=== PATIENT | female | born 1935 | race Caucasian/White ===

== ENCOUNTER 2018-12-04 21:40 | Inpatient (IN) | payer MEDICARE, MEDICAID ==
[2018-12-04 23:14] VITALS: BP 167/76
[2018-12-05] MEDS ORDERED: Dicyclomine 10 mg Cap PO PRN (00:51)
[2018-12-05] MEDS ORDERED: Polyvinyl Alcohol Ophth Soln 15 mL Bottle EACH EYE PRN (00:51)
[2018-12-05] MEDS ORDERED: Maalox 30 mL Cup PO PRN (00:51)
[2018-12-05] MEDS ORDERED: Non-Formulary Item 1 EA (Diclofenac Sodium [Voltaren] 2 GM) TP PRN (00:51)
[2018-12-05] MEDS ORDERED: PHENOL MM PRN (00:51)
[2018-12-05] MEDS ORDERED: THROAT MM PRN (00:51)
[2018-12-05] MEDS ORDERED: Lactulose 10 Gm/15 mL 30mL UDC PO PRN (01:30)
[2018-12-05] MEDS: Pantoprazole 40 mg EC Tab PO SCH (06:49)
[2018-12-05] MEDS: Levothyroxine 0.05 Mg Tab PO SCH (06:49)
[2018-12-05] MEDS ORDERED: [UNRECOGNIZED DRUG - MIXTURE] PO SCH (09:00)
[2018-12-05] MEDS: Ferrous Sulfate 325 MG TAB PO SCH (09:13)
[2018-12-05] MEDS: Multivitamin Tab PO SCH (09:14)
[2018-12-05] MEDS: Magnesium Chloride EC 64mg Tab PO SCH ×2 (09:14→17:14)
[2018-12-05] MEDS: Atorvastatin Calcium 10 MG TAB PO SCH (21:36)
[2018-12-05] MEDS: NIFEdipine 30 mg ER Tab PO SCH (21:41)
--- NOTE | 2018-12-05 21:57 | Consultation ---
DATE OF CONSULTATION: 12/04/2018 INTERNAL MEDICINE CONSULTATION HISTORY OF PRESENT ILLNESS: The patient is an 82-year-old female resident of a group home, a patient of mine, being a PCP. PAST MEDICAL HISTORY: Significant for hypertension, diabetes mellitus, diabetic angiopathy, neuropathy, nephropathy, COPD, CHF, chronic kidney disease, peripheral neuropathy, peptic ulcer disease, gastritis, arthritis, osteoporosis, and advanced psychosis and dementia. SOCIAL HISTORY: No prior history of smoking. OBSTETRIC HISTORY: P2 +0. Menses are postmenopausal. REVIEW OF SYSTEMS: The patient initially was transferred to [facility] where the patient's blood pressure was very high, was treated in the Emergency Room. Psych received a call from the nurse at the [facility]. The patient is stable and is being transferred to Geropsych Unit. PHYSICAL EXAMINATION: GENERAL: Average female in no obvious respiratory distress. VITAL SIGNS: Include a blood pressure of 160/94, heart rate of 100, and respiration rate of 18. SKIN: Show no cellulitis. HEENT: Normal conjunctivae. NECK: Supple. LUNGS: Show occasional rhonchi, occasional crepitation. No bronchial breathing. HEART: First and second heart sounds normal. ABDOMEN: Soft. Bowel sounds good. EXTREMITIES: Show arthritis. NEUROLOGIC: The patient has advanced psychosis. LABORATORY DATA: Done at the [facility] ER has been reviewed. ADMITTING DIAGNOSES: Include poorly controlled hypertension, diabetes mellitus, diabetic angiopathy, neuropathy, nephropathy, COPD, chronic kidney disease, peripheral neuropathy, CHF, coronary artery disease, peptic ulcer disease, arthritis, and osteoporosis. CURRENT MEDICATIONS: The patient is on magnesium chloride, multivitamin, Procardia 90 mg daily, Protonix 40 mg daily. The patient is on Risperdal 0.5 mg twice a day, Carafate 1 gram 4 times a day, tramadol 50 mg 4 times a day, Ambien 5 mg daily, Tylenol p.r.n., atorvastatin 10 mg daily, Coreg 6.25 mg twice a day. The patient is on Cipro for UTI. The patient is on clonidine p.r.n., Lasix 40 mg daily, hydralazine 50 mg 3 times a day, Isordil 10 mg twice a day, levothyroxine 50 mcg daily. PROGNOSIS: Fair to guarded. TREATMENT PLAN: The patient is very noncompliant to the medicines. JOB# [id number]
--- NOTE | 2018-12-06 01:05 | Psychiatric Evaluation ---
DATE OF SERVICE: 12/05/2018 REASON FOR ADMISSION: The patient was admitted for episodes of agitation as well as stuffing tissue paper in her mouth and nose. Upon interview, the patient appeared to be somewhat poor of a historian. The patient was able to give her name, age, and birthday. When asked why she is here, the patient stated " It was a mistake". The patient stated that she is not crazy. She said it was her roommate that is supposed to be here. She said her roommate is crazy. When asked if she had been agitated, striking out at the staff as well as stuffing tissue in her nose and mouth, the patient stated that she had some condition that she is trying to treat. The patient also reported that she did not want to be changed by male staff, so she kicked male staff. The patient reported that since she had been here, she did not like the food, but she tried to eat. The patient reported that she sleeps okay. The patient reported that she feels okay. When I asked her to rate her mood on a 0-10 scale, 0 being normal, happy and 10 being very depressed, the patient stated 0. The patient denied any suicidal or homicidal ideation, plan or intention. Orientation: the patient was disoriented to time, place, and person. The patient was not able to say where she is. When asked what the date is today, the patient stated that there was no calendar or anything for her to look at. When asked what month this is, the patient said December. When asked what day in December, the patient stated it must well be 10 because that is her birthday. The patient reported that the year is 2015. Memory: appeared to be somewhat impaired for immediate memory. The patient had difficulty remembering and repeating all 4 items at the same time. The patient was given the 4 items 4 times. The patient was able to remember and repeat only 3/4 items. When I asked her to recall the 4 items, the patient was unable to recall any. When given hints, the patient was able to recall 3/4 items. Concentration: appeared to be adequate. The patient attempted serial 3 subtraction, gave an answer of 17 and 15. The patient denied any auditory or visual hallucination or delusion. The patient gave concrete interpretation to one of the proverbs and not able to give interpretation to the other proverb and said that she had not heard of the third proverb. PAST MEDICAL HISTORY: The patient has history of atherosclerotic heart disease, UTI, osteoporosis, hypertension, chronic kidney disease, bradycardia, hyperlipidemia, hypothyroidism, gastroesophageal reflux. PERSONAL HISTORY: The patient reported that she is a . She has one son that she has not seen in 7 years. The patient reported that she was born in [facility], but her parents took her to [facility] when she was 12 years old. The patient reported that she went to school for about 1 year in [place]. The patient reported that she moved to [place] when she was 22. The patient reported that she used to work in [employer]. SUBSTANCE ABUSE HISTORY: The patient reported that she used to drink in the past. The patient denied any tobacco use. PAST SURGICAL HISTORY: The patient reported that she had 1 section. The patient had surgery to her left shoulder. MEDICATIONS: Currently, the patient is on Tylenol, simethicone, atorvastatin, Dulcolax, carvedilol, ciprofloxacin, clonidine, dicyclomine, docusate sodium, Lexapro 20 mg daily, ferrous sulfate, Lasix, hydralazine, isosorbide, lactulose, levothyroxine, loratadine, Ativan 0.5 mg q. 4 hours p.r.n., magnesium chloride, multiple vitamins, nifedipine, Protonix, Risperdal 0.5 mg b.i.d., sennosides, senna, sodium bicarbonate, sodium chloride, sucralfate, tramadol and Ambien 5 mg at bedtime p.r.n. LABORATORY RESULTS: There is no lab available at this time. DIAGNOSES: AXIS I: 1. 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 2. Psychotic disorder and mood disorder, depressed due to medical condition. 3. Impulse control disorder, not otherwise specified. 4. Personality change due to medical condition. PLAN: We will continue the patient on current medications and monitor the patient's response to the medications. We will adjust the medications accordingly as to the patient's symptoms that the patient will exhibit. JOB# [id number] ANGELES
--- NOTE | 2018-12-06 01:29 | Progress Notes ---
DATE: 12/05/2018 INTERNAL MEDICINE CONSULTATION FOLLOWUP SUBJECTIVE: The patient is an 82-year-old female [facility]. CURRENT MEDICAL PROBLEMS: Include diabetes mellitus; diabetic angiopathy, neuropathy, nephropathy; peripheral neuropathy; hypertension; COPD; CHF; chronic kidney disease; hypothyroidism; peptic ulcer disease; gastritis; arthritis; advanced psychosis and dementia. The patient has a labile blood pressure right now, complaining of headache off and on, chronic pain syndrome. Very noncompliant. OBJECTIVE: VITAL SIGNS: Stable. LUNGS: Show bilateral rhonchi, crepitation. No bronchial breathing. HEART: First and second normal. ABDOMEN: Soft, bowel sounds present. EXTREMITIES: Show arthritis. NEUROLOGIC: The patient has advanced psychosis and dementia. PLAN: Psychiatric consult reviewed. Medicines reviewed. Continue current medical management. JOB# [id number]
[2018-12-06] MEDS: Pantoprazole 40 mg EC Tab PO SCH (06:45)
[2018-12-06] MEDS: Levothyroxine 0.05 Mg Tab PO SCH (06:45)
[2018-12-06] MEDS: Magnesium Chloride EC 64mg Tab PO SCH ×2 (08:13→16:39)
[2018-12-06] MEDS: Ferrous Sulfate 325 MG TAB PO SCH (08:13)
[2018-12-06] MEDS: Multivitamin Tab PO SCH (08:14)
--- NOTE | 2018-12-06 12:12 | Progress Notes ---
DATE: 12/06/2018 SUBJECTIVE: The patient was resting in bed with eyes closed. The patient responded to verbal stimuli. The patient reported that she is doing okay. She reported that she slept well last night. The patient denied any auditory or visual hallucination. No delusion. The patient denied giving staff a hard time. OBJECTIVE: The patient continued to be calm and cooperative when talked to. The staff reported that the patient slept about 6 hours. Staff reported that the patient was calm, cooperative and able to make needs known. The patient took her medications last evening without any difficulty. The staff reported that the patient did not exhibit any psychotic symptoms. No episodes of talking to self or responding to internal stimuli. The patient has not expressed any delusion. ASSESSMENT: AXIS I: 1. 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 2. Psychotic disorder and mood disorder, depressed due to medical condition. 3. Impulse control disorder, not otherwise specified. 4. Personality change due to medical condition. PLAN: We will increase the patient Risperdal to 0.5 mg p.o. q.a.m. and 1 mg p.o. at bedtime since the patient had exhibited increased psychotic symptoms that led to this hospitalization. We will monitor the patient's response to the medication and monitor whether the patient will continue to be compliant with medications, care and treatment. JOB# [id number] ANGELES
[2018-12-06] MEDS: NIFEdipine 30 mg ER Tab PO SCH (20:47)
[2018-12-06] MEDS: Atorvastatin Calcium 10 MG TAB PO SCH (20:49)
--- NOTE | 2018-12-06 22:23 | Progress Notes ---
DATE: 12/06/2018 INTERNAL MEDICINE CONSULTATION FOLLOWUP SUBJECTIVE: The patient is an 82-year-old female. CURRENT MEDICAL PROBLEMS: Include diabetes mellitus, diabetic angiopathy, neuropathy, hypertension, COPD, congestive heart failure, coronary artery disease, peptic ulcer disease, arthritis, osteoporosis, and hypothyroidism. No new symptoms. OBJECTIVE: VITAL SIGNS: Stable. LUNGS: Show bilateral rhonchi with crepitation. No bronchial breathing. HEART: First and second heart sounds normal. ABDOMEN: Soft. Bowel sounds are present and good. EXTREMITIES: Show arthritis. NEUROLOGIC: The patient has advanced psychosis and schizophrenia. Psych consult reviewed. PLAN: Continue current medical management. Blood pressure continues to be labile, as the patient is very noncompliant. JOB# [id number]
[2018-12-07] MEDS: Levothyroxine 0.05 Mg Tab PO SCH (06:57)
[2018-12-07] MEDS: Pantoprazole 40 mg EC Tab PO SCH (06:57)
[2018-12-07] MEDS: Multivitamin Tab PO SCH (08:30)
[2018-12-07] MEDS: Magnesium Chloride EC 64mg Tab PO SCH ×2 (08:31→16:21)
[2018-12-07] MEDS: Ferrous Sulfate 325 MG TAB PO SCH (08:32)
[2018-12-07] MEDS: Atorvastatin Calcium 10 MG TAB PO SCH (21:10)
[2018-12-07] MEDS: NIFEdipine 30 mg ER Tab PO SCH (21:11)
--- NOTE | 2018-12-07 23:25 | Progress Notes ---
DATE: SUBJECTIVE: The patient was eating lunch while sitting up in bed. The patient was calm and cooperative when talked to. The patient reported that she is eating okay and that she slept well last night. The patient asked for diver assistant to open her salad dressing. When asked if she would be willing to sign for voluntarily stay since the patient has been placed on a 5150 upon admission, the patient stated no. The patient stated that this was a mistake that she was brought here. The patient stated that there was one gonzález with glasses bringing her over here. However, she was not able to say who that person was. The patient said something about a baby doctor. When asked if that person was a doctor she said no. The patient went on to say something about two other guys. The patient gave confusing information. When told that she came from [facility] and sent her over here, the patient stated that she is not going back there anymore. When asked where she would be going to, the patient stated that Dr. Rivera's house. He has been her doctor for 35 years, who is now retired. He had asked her to go and stay with him. When asked if she had talked to him about this, the patient did not respond. The patient continued to repeat herself that she doesn't need to be here, that it was a mistake for her to be here. She declined to sign voluntary stay. OBJECTIVE: The patient continued to be calm and cooperative when talked to; however, the patient continued to exhibit psychotic symptoms with different delusions. The staff reported that the patient has been cooperative with care and treatment. She has been taking her medications. She has been eating and sleeping okay. ASSESSMENT: 1. Alzheimer's dementia with psychosis and depression with behavioral disturbance. 2. Psychotic disorder and mood disorder, depressed due to medical condition. 3. Impulse control disorder, not otherwise specified. 4. Personality change due to medical condition. PLAN: We will increase her Risperdal to 1 mg p.o. b.i.d. and monitor the patient's response to the medication. We will place the patient on 5250 hold. JOB# [id number] [facility]
[2018-12-08] MEDS: Pantoprazole 40 mg EC Tab PO SCH (06:43)
[2018-12-08] MEDS: Levothyroxine 0.05 Mg Tab PO SCH (06:43)
[2018-12-08] MEDS: Multivitamin Tab PO SCH (09:52)
[2018-12-08] MEDS: Magnesium Chloride EC 64mg Tab PO SCH ×2 (09:52→17:00)
[2018-12-08] MEDS: Ferrous Sulfate 325 MG TAB PO SCH (09:53)
--- NOTE | 2018-12-08 11:13 | Progress Notes ---
DATE: 12/07/2018 INTERNAL MEDICINE CONSULTATION FOLLOWUP SUBJECTIVE: The patient is an 82-year-old female patient of mine seen at [facility]. PAST MEDICAL HISTORY: Significant for diabetes mellitus, diabetic angiopathy, neuropathy, hypertension, COPD, congestive heart failure, peripheral neuropathy, chronic kidney disease, hypothyroidism, peptic ulcer disease, gastritis, arthritis, osteoporosis. The patient remains noncompliant, refusing medicines off and on. OBJECTIVE: VITAL SIGNS: Blood pressure is still labile. Blood pressure is 160/100. Heart rate of ____. Respiratory rate of 18. SKIN: Shows no cellulitis. HEENT: Normal conjunctivae. NECK: Supple. LUNGS: Show occasional rhonchi, occasional crepitation. No bronchial breathing. HEART: First and second heart sounds normal. ABDOMEN: Soft. Bowel sounds present and good. EXTREMITIES: Show arthritis. NEUROLOGIC: No new focal deficit. Psych consult reviewed. Medicines reviewed. PLAN: Continue current medicines. JOB# [id number]
[2018-12-08] MEDS: NIFEdipine 30 mg ER Tab PO SCH (20:05)
[2018-12-08] MEDS: Atorvastatin Calcium 10 MG TAB PO SCH (20:07)
--- NOTE | 2018-12-08 22:59 | Progress Notes ---
DATE: 12/08/2018 SUBJECTIVE: The patient was eating lunch in bed. The patient continued to be calm and cooperative when talked to. The patient reported that she is eating and sleeping okay. When asked if any friends or family visited, the patient stated that her son will be coming over. When asked when did she talk to her son, the patient stated that she did not talk to him, but she knows that he is coming. When asked where is he now, the patient stated that he is staying at Dr. Rivera's house and has been there for 3 months. In the past, the patient stated that she had not talked to her son or seen him for 7 years. The patient again stated that she is going to Dr. Rivera's house when she gets out of here. When asked if she had talked to him about it, the patient stated no. The patient stated that she knows that Dr. Rivera wants her to go live with him. OBJECTIVE: The patient continued to be calm and cooperative when talked to. The staff reported that the patient had refused to take her medication this morning and her blood pressure at 9 o'clock was low, so the antihypertensive medications were withheld. When the staff checked her vital sign again around noon, it was high, so the patient was given antihypertensive medication. The staff reported that the patient refused to take the medication from him; however, SCHOOL CROSSING GUARD was able to convince the patient to take her medications. The staff reported that the patient took her medication last night. The staff reported that the patient has been eating and sleeping okay. The staff reported that the patient had shown some episodes of agitation and aggression this morning. ASSESSMENT: 1. 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 2. Psychotic disorder and mood disorder, depressed due to medical condition. 3. Impulse control disorder, not otherwise specified. 4. Personality change due to medical condition. PLAN: We will continue the patient on current Risperdal. It has been increased to 1 mg b.i.d. We will monitor the patient's response to the medication for the next day or two before readjusting the medication. JOB# [id number] ANGELES
--- NOTE | 2018-12-08 23:03 | Progress Notes ---
DATE: 12/08/2018 INTERNAL MEDICINE CONSULTATION FOLLOWUP SUBJECTIVE: The patient is an 82-[facility] CURRENT MEDICAL PROBLEMS: Include diabetes mellitus, diabetic angiopathy, neuropathy, nephropathy, hypertension, COPD, congestive heart failure, chronic kidney disease, hypothyroidism, peptic ulcer disease, gastritis, arthritis, osteoporosis. No new symptoms. Compliance is poor. OBJECTIVE: VITAL SIGNS: Blood pressure is still labile. LUNGS: Show occasional rhonchi, occasional crepitation. No bronchial breathing. HEART: First and second heart sounds normal. ABDOMEN: Soft. Bowel sounds present. EXTREMITIES: Show arthritis. NEUROLOGIC: Advanced psychosis. Psych consult reviewed. PLAN: Continue current medical management. JOB# [id number]
[2018-12-09] MEDS: Pantoprazole 40 mg EC Tab PO SCH (06:39)
[2018-12-09] MEDS: Levothyroxine 0.05 Mg Tab PO SCH (06:39)
[2018-12-09] MEDS: Ferrous Sulfate 325 MG TAB PO SCH (09:00)
[2018-12-09] MEDS: Multivitamin Tab PO SCH (09:00)
[2018-12-09] MEDS: Magnesium Chloride EC 64mg Tab PO SCH ×2 (12:24→18:57)
[2018-12-09] MEDS: NIFEdipine 30 mg ER Tab PO SCH (21:35)
[2018-12-09] MEDS: Atorvastatin Calcium 10 MG TAB PO SCH (21:36)
--- NOTE | 2018-12-09 23:46 | Progress Notes ---
DATE: 12/09/2018 SUBJECTIVE: Staff was spoken to. The patient is interviewed. Mood is noted to be irritable. Affect is constricted. The patient has no insight into her illness. The patient is screaming and yelling. Continues to be very paranoid. Attention span and concentration are noted to be poor at this time. The patient has not been able to contract for safety. The patient is not ready to be discharged to a lower level of care yet. ASSESSMENT: The patient is still paranoid. PLAN: To continue the patient with the current medications and followup. JOB# [id number]
[2018-12-10] MEDS: Pantoprazole 40 mg EC Tab PO SCH (06:43)
[2018-12-10] MEDS: Levothyroxine 0.05 Mg Tab PO SCH (06:43)
[2018-12-10] MEDS: Magnesium Chloride EC 64mg Tab PO SCH ×2 (09:31→17:13)
[2018-12-10] MEDS: Multivitamin Tab PO SCH (09:32)
[2018-12-10] MEDS: Ferrous Sulfate 325 MG TAB PO SCH (09:32)
--- NOTE | 2018-12-10 20:45 | Progress Notes ---
DATE: 12/10/2018 INTERNAL MEDICINE CONSULTATION SUBJECTIVE: The patient is an 82-year-old female patient of mine. CURRENT MEDICAL PROBLEMS: Include diabetes mellitus, hypertension, COPD, CHF, chronic kidney disease, hypothyroidism, peptic ulcer disease, gastritis, arthritis. CHIEF COMPLAINT: No new symptoms. OBJECTIVE: VITAL SIGNS: Stable. LUNGS: Show occasional rhonchi, occasional crepitation. No bronchial breathing. HEART: First and second heart sounds normal. ABDOMEN: Soft, no tenderness, no masses palpable. EXTREMITIES: Show arthritis. NEUROLOGIC: The patient has no additional focal deficit. MEDICAL DIAGNOSES: Include diabetes mellitus, hypertension, COPD, CHF, chronic kidney disease, hypothyroidism, peptic ulcer disease, gastritis, arthritis. PLAN: Psych consult reviewed. Continue current medical management. JOB# [id number]
[2018-12-10] MEDS: NIFEdipine 30 mg ER Tab PO SCH (21:21)
[2018-12-10] MEDS: Atorvastatin Calcium 10 MG TAB PO SCH (21:21)
--- NOTE | 2018-12-10 22:02 | Progress Notes ---
DATE: 12/10/2018 SUBJECTIVE: The patient was resting in bed, alert, calm and cooperative. The patient continued to be pleasant when talked to. The patient reported that she has been eating and sleeping okay. When asked how was her lunch; the patient stated she thinks she ate some of it. The patient was not able to recall what she had for lunch. When asked what she would do when she gets out, again the patient stated that she is going to Dr. Rivera's house. When asked when was the last time she talked to him, to know that he is aware that she will be going to his house, the patient stated that she had not talked to him in a long time, but she knows that she is going there and he has been expecting her. The patient stated that her nephew will come and pick her up in an ambulance. When asked if her nephew is an tank truck driver, the patient stated yes. OBJECTIVE: The patient continued to be calm and pleasant during interview. The patient continued to exhibit psychotic symptoms. The staff reported that the patient has been cooperative and pleasant with care and treatment and no episodes of agitation and aggression. The patient has been taking her medication without any problem. The patient has been cooperative with cleaning and changing. The staff reported that the patient continued to decline getting out of bed and not wanting to attend any activities. ASSESSMENT: 1. 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 2. Psychotic disorder and mood disorder, depressed due to medical condition. 3. Impulse control disorder, not otherwise specified. 4. Personality change due to medical condition. PLAN: Currently, the patient is on Risperdal 1 mg p.o. b.i.d. and 1 mg at bedtime. We will change the patient's Risperdal to 1.5 mg p.o. q. 12 hours and monitor the patient's response to the medication. We will monitor the patient's delusions. JOB# [id number] ANGELES
[2018-12-11] MEDS: Levothyroxine 0.05 Mg Tab PO SCH (06:54)
[2018-12-11] MEDS: Pantoprazole 40 mg EC Tab PO SCH (06:54)
--- NOTE | 2018-12-11 08:45 | Discharge Summary ---
DATE OF DISCHARGE: 12/11/2018 REASON FOR ADMISSION: The patient was admitted for increased episodes of agitation and aggression as well as stuffing tissue paper into her mouth and nose. HISTORY OF PRESENT ILLNESS: The patient was an 82-year-old female from [facility]. On the day of admission, the facility requested inpatient treatment because of increased episodes of agitation, aggression and psychotic symptoms. Upon interview, the patient appeared to be somewhat poor historian. The patient was able to give her name, age, and birthday. The patient was able to say that she was living at [facility]. However, the patient stated that she is not going back there. The patient stated that this admission was a mistake. She stated it should be her neighbor and not her that is to be here. The patient stated that she is not crazy. MENTAL STATUS EXAM: The patient appeared appropriate for stated age. The patient was able to say where she was living prior to coming here. However, the patient denied having any problem and does not feel that she needs to be here. The patient reported that she has been eating and sleeping well. Memory appeared to be somewhat poor for immediate memory. Long-term memory appeared to be reasonably good. Concentration appeared to be adequate. The patient denied any auditory or visual hallucination or delusion. The patient gave concrete interpretation to one of the proverbs and not able to give interpretation to another one and stated that she had not heard of the third one. Insight poor. Judgment impaired. PAST PSYCHIATRIC HISTORY: The patient had a prior hospitalization in the Psychiatric Unit before. MEDICAL HISTORY: Atherosclerotic heart disease, urinary tract infection, osteoporosis, hypertension, chronic kidney disease, bradycardia, hyperlipidemia, hypothyroidism and gastroesophageal reflux disease. MEDICATIONS: The patient was on Tylenol, simethicone, atorvastatin, Dulcolax, carvedilol, ciprofloxacin, clonidine, dicyclomine, docusate sodium, Lexapro 20 mg daily, ferrous sulfate, Lasix, hydralazine, isosorbide, lactulose, levothyroxine, loratadine, Ativan 0.5 mg q. 4 hours p.r.n., magnesium chloride, multiple vitamin, nifedipine, Protonix, Risperdal 0.5 mg b.i.d., sennosides, senna, sodium bicarbonate, sodium chloride, sucralfate, tramadol and Ambien 5 mg p.o. at bedtime p.r.n. HOSPITAL COURSE: After admission, the patient was maintained on her medications from the facility. On the second day when asked where she came from, the patient was able to say that she is from [facility]. However, she said that she would not go back there again. When asked where she would go, the patient stated that she would go to Dr. Rivera'domin[facility] [place]. He has been her doctor for 35 years. However, the patient reported that she had not talked to Dr. Rivera for a long time. When asked how she knew that he will welcome her to his house, the patient stated that she knows that he is expecting her. The patient also stated that her son has been staying at Dr. [facility] [place] for the last 3 months. During the initial evaluation, the patient stated that she had not talked to her son or seen him for 7 years. Since the patient exhibited severe delusions, therefore her Risperdal was adjusted from 0.5 mg to 0.5 in the morning and 1 mg at night. Upon followup, the patient continued to have severe delusions, therefore Risperdal was increased further to 1 mg b.i.d. and 1 mg at bedtime. This was later changed to 1.5 mg p.o. q. 12 hours. During her stay, the patient continued to be calm and cooperative most of the time. The patient continued to be eating and sleeping well. On the day of discharge, the patient stated that she did not sleep well the night before, but not able to give much information except stating that there were things going on here, but not able to be specific. Again, the patient continued to state that she is going to Dr. Rivera'domin[facility] [place]. The day before her discharge, the patient stated that her nephew is going to come to pick her up in an ambulance. 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 Even though the patient continued to have delusions, but not much episodes of behavior problem, therefore the patient was discharged on 12/11/2018 back to [facility]. CONDITION AT THE TIME OF DISCHARGE: The patient was discharged in stable condition with recurrent delusions, but no behavior problems. The patient continued to be eating and sleeping well. Lab report, there was no lab results because the patient had refused blood drawn. MEDICATIONS: The patient will continue Tylenol, Ativan 0.5 mg q. 4 hours p.r.n., Ambien 5 mg at bedtime p.r.n., simethicone, Dulcolax, clonidine, dicyclomine, loratadine, Chloraseptic spray, artificial tear, tramadol, lactulose, levothyroxine, pantoprazole, sucralfate, carvedilol, Colace, Lexapro 20 mg daily, ferrous sulfate, Lasix, hydralazine, Isordil, Slow-Mag, multiple vitamin, senna, sodium bicarbonate, potassium chloride, Lipitor, Procardia-XL, Risperdal 1.5 mg q. 12 hours. 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 2. Psychotic disorder and mood disorder, depressed due to medical condition. 3. Impulse control disorder, not otherwise specified. 4. Personality change due to medical condition. [facility]# [id number]
[2018-12-11] MEDS: Ferrous Sulfate 325 MG TAB PO SCH ×2 (09:16→09:56)
[2018-12-11] MEDS: Magnesium Chloride EC 64mg Tab PO SCH (09:16)
[2018-12-11] MEDS: Multivitamin Tab PO SCH ×2 (09:17→09:55)
== END 2018-12-11 16:05 | DRG 57 ==
LOC: GERO 21:40
PROVIDERS: ADMIT Psychiatry & Neurology Psychiatry; ATTEND Psychiatry & Neurology Psychiatry
DX: G30.9 Alzheimer's disease, unspecified (principal); F02.81 Dementia in other diseases classified elsewhere, unspecified severity, with behavioral disturbance; N18.9 Chronic kidney disease, unspecified; I13.0 Hypertensive heart and chronic kidney disease with heart failure and stage 1 through stage 4 chronic kidney disease, or unspecified chronic kidney disease; E11.22 Type 2 diabetes mellitus with diabetic chronic kidney disease; J44.9 Chronic obstructive pulmonary disease, unspecified; I50.9 Heart failure, unspecified; M19.90 Unspecified osteoarthritis, unspecified site; M81.0 Age-related osteoporosis without current pathological fracture; E11.42 Type 2 diabetes mellitus with diabetic polyneuropathy; E11.51 Type 2 diabetes mellitus with diabetic peripheral angiopathy without gangrene; I25.10 Atherosclerotic heart disease of native coronary artery without angina pectoris; K27.9 Peptic ulcer, site unspecified, unspecified as acute or chronic, without hemorrhage or perforation; E03.9 Hypothyroidism, unspecified; K21.9 Gastro-esophageal reflux disease without esophagitis; F63.9 Impulse disorder, unspecified; Z91.14 Patient's other noncompliance with medication regimen; Z79.899 Other long term (current) drug therapy
CPT/HCPCS: 83036-90; Z7610